=== PATIENT | male | born 1945 | race Caucasian/White ===

== ENCOUNTER 2017-03-31 10:15 | Emergency (ER) | payer MEDICARE, OTHER | END 2017-03-31 15:45 | disposition home or self-care (01) | LOC: ER 10:15 | DX: R10.10 Upper abdominal pain, unspecified (principal); F31.9 Bipolar disorder, unspecified; F17.210 Nicotine dependence, cigarettes, uncomplicated; Z87.442 Personal history of urinary calculi; Z79.899 Other long term (current) drug therapy; Z88.8 Allergy status to other drugs, medicaments and biological substances | CPT/HCPCS: 36415; Q9963; Q9967 ==